=== PATIENT | male | born 1955 | race Caucasian/White ===

== ENCOUNTER 2019-10-26 16:18 | Inpatient (IN) | payer SELFPAY ==
[~2019-10-26] VITALS: Ht 185.4 cm; Wt 123.4 kg
--- NOTE | 2019-10-26 17:47 | Emergency Department Note ---
History of Present Illnes History of Present Illness Chief Complaint: General Medicine Complaints History of Present Illness This is a 63 year old male arrives to the ED for admission for acute osteomyelitis of his left fifth toe, patient is a diabetic and sees a grinder machine knife setter as an outpatient. Historian: Patient Arrival Mode: Car Onset (how long ago): day(s) Radiation: Reports non-radiation Severity: mild Onset quality: gradual Duration (how long): day(s) Timing of current episode: constant Progression: worsening Chronicity: new Context: Reports recent illness Relieving factors: none Exacerbating factors: none Past Medical/Family History Physician Review I have reviewed the patient's past medical and family history. Any updates have been documented here. Past Medical History Recent Fever: No Clinical Suspicion of Infectio: No New/Unexplained Change in Ment: No Past Medical History: Hypertension, Diabetes Other Surgery: knee surgery eye sx as child Social History Physically hurt or threatened: No Review of Systems Review of Systems Constitutional: Reports no symptoms EENTM: Reports no symptoms Cardiovascular: Reports no symptoms Respiratory: Reports no symptoms Gastrointestinal: Reports no symptoms Genitourinary: Reports no symptoms Musculoskeletal: Reports as per HPI, Reports joint pain, Reports joint swelling Integumentary: Reports no symptoms Neurological: Reports no symptoms Psychological: Reports no symptoms Endocrine: Reports no symptoms Hematological/Lymphatic: Reports no symptoms Physical Exam Related Data Allergies: Coded Allergies: No Known Allergies (Unverified , 10/26/19) Triage Vital Signs Vital Signs Date Time Temp Pulse Resp B/P (MAP) Pulse Ox O2 Delivery O2 Flow Rate FiO2 10/26/19 16:26 97.3 95 16 126/85 100 Room Air Vital signs reviewed: Yes Physical Exam CONSTITUTIONAL Constitutional: Present well-developed, Present well-nourished HENT HENT: Present normocephalic, Present atraumatic, Present oropharynx clear/moist, Present nose normal HENT L/R: Present left ext ear normal, Present right ext ear normal EYES Eyes: Reports PERRL, Reports conjunctivae normal NECK Neck: Present ROM normal PULMONARY Pulmonary: Present effort normal, Present breath sounds normal CARDIOVASCULAR Cardiovascular: Present regular rhythm, Present heart sounds normal, Present capillary refill normal, Present normal rate GASTROINTESTINAL Abdominal: Present soft, Present nontender, Present bowel sounds normal GENITOURINARY Genitourinary: Present exam deferred SKIN Skin: Present warm, Present dry MUSCULOSKELETAL Musculoskeletal: Present tenderness (fifth left toe ulcer ), Present swelling NEUROLOGICAL Neurological: Present alert, Present oriented x 3, Present no gross motor or sensory deficits PSYCHOLOGICAL Psychological: Present mood/affect normal, Present judgement normal Results Laboratory Lab results reviewed: Yes Imaging Imaging results reviewed: Yes Assessment & Plan Medical Decision Making MDM 63-year-old male arrives to the ED with acute osteomyelitis of the fifth left toe, admission orders arrived the patient. Patient admitted to Dr. Trujillo and grinder machine knife setter consulted. Assessment & Plan Final Impression: (1) Osteomyelitis Depart Disposition: ADMITTED Last Vital Signs Date Time Temp Pulse Resp B/P (MAP) Pulse Ox O2 Delivery O2 Flow Rate FiO2 10/26/19 16:26 97.3 95 16 126/85 100 Room Air MARY KAY ISRAEL DO Oct 26, 2019 17:47
[2019-10-26 17:52] LABS: BASOPHILS # (AUTO) 0.1 (0.0-0.1); BASOPHILS % 0.6 % (0.0-1.0); EOSINOPHILS # (AUTO) 0.1 (0.0-0.4); EOSINOPHILS % 0.8 % (0.0-6.0); HEMATOCRIT 38.5 % (38.2-49.6); HEMOGLOBIN 13.9 g/dL (14.0-18.0); LYMPHOCYTES # (AUTO) 1.4 (1.0-3.2); LYMPHOCYTES % 15.7 % (18.0-39.1); MEAN CORPUSCULAR HEMOGLOBIN 35.4 pg (28-32); MEAN CORPUSCULAR HGB CONC 36.1 g/dL (31-35); MONOCYTES # (AUTO) 1.2 (0.2-0.8); MONOCYTES % 13.7 % (4.4-11.3); NEUTROPHILS % 68.9 % (38.7-80.0); PLATELET COUNT 248 x10e3/uL (140-360); RED BLOOD COUNT 3.93 x10e6/uL (4.3-5.7)
[2019-10-26 18:14] LABS: ALANINE AMINOTRANSFERASE 33 IU/L (0-55); ALBUMIN 3.5 g/dL (3.5-5.0); ALBUMIN/GLOBULIN RATIO 0.7 (0.8-2.0); ALKALINE PHOSPHATASE 108 IU/L (40-150); ANION GAP 17.9 mmol/L (8-16); BLOOD UREA NITROGEN 11 mg/dL (7-26); BUN/CREATININE RATIO 11 (6-25); CALCIUM 9.6 mg/dL (8.4-10.2); CARBON DIOXIDE 23 mmol/L (22-29); CHLORIDE 96 mmol/L (98-107); CREATININE, SERUM 0.97 mg/dL (0.72-1.25); EST GLOMERULAR FILTRATION RATE > 60 ML/MIN (60-); GLUCOSE 165 mg/dL (74-118); POTASSIUM 3.9 mmol/L (3.5-5.1); SODIUM 133 mmol/L (136-145)
--- NOTE | 2019-10-26 18:48 | Diagnostic Imaging Report ---
X-ray site and # of views HISTORY: Foot pain. COMPARISON: None available. FINDINGS: Bones/joints: The bones are diffusely demineralized. No acute fracture or dislocation. There are mild degenerative changes of the midfoot and multiple interphalangeal joints. Soft tissues: Atherosclerotic vascular calcification. IMPRESSION: No acute fracture or dislocation. Mild degenerative changes of the midfoot and multiple interphalangeal joints. Signed by: Deborah Cast MD on 10/26/2019 6:44 PM
[2019-10-26 19:33] VITALS: BP 144/98
[2019-10-26] MEDS ORDERED: LISINOPRIL-HCT1 EAC2 (20:09)
[2019-10-26] MEDS ORDERED: PRAVACHOL20 MG PO (20:09)
[2019-10-26] MEDS ORDERED: METFORMIN HCL1000 MG (20:09)
[2019-10-26 20:13] VITALS: BP 144/98
[2019-10-26] MEDS ORDERED: ONDANSETRON HCL INJ 2MG/ML 2ML 2 MG/ML VIAL IV PRN ×2 (20:15)
[2019-10-26] MEDS ORDERED: ACETAMINOPHEN 325 MG TAB PO PRN (20:15)
[2019-10-26] MEDS ORDERED: DEXTROSE 50% SYRINGE 50 ML IV PRN (20:15)
[2019-10-26] MEDS ORDERED: HYDRALAZINE HCL 20 MG/ML VIAL IV PRN (20:30)
[2019-10-26] MEDS: PRAVASTATIN 20 MG TAB PO SCH (21:00)
[2019-10-26] MEDS: INSULIN LISPRO 100 UNIT/1 ML 3ML VIAL SQ SCH (21:00)
[2019-10-26] MEDS: VANCOMYCIN 1GM/NS 250 ML 250 ML IV SCH (21:00)
[2019-10-26 21:24] VITALS: BP 144/98
--- OUTSIDE RECORDS SUMMARY | 2019-10-26 21:36 | XMS REPORT | Continuity of Care Document ---
Author Author [facility] Organization [facility] Address [address] [place] [address] [place] [id number] Phone Unavailable Care Team Providers Care Copy Reader Name Role Phone Cedric ISRAEL Attphys Unavailable DARRINFredi Admphys Unavailable Problems This patient has no known problems. Allergies, Adverse Reactions, Alerts This patient has no known allergies or adverse reactions. Medications This patient has no known medications. Procedures This patient has no known procedures. Results Test Description Test Time Test Comments Results Result Comments Source FOOT LEFT COMPLETE 2019-10-26 18:42:00 [place] [address] Patient Name: SUKI FARIAS MR #: [id number] : 1955 Age/Sex: 63/M Req #: [id number] Adm Physician: Ordered by: MARY KAY ISRAEL DO Report #: [id number] Location: ER Room/Bed: Procedure: [id number] DX/FOOT LEFT COMPLETE Exam Date: 10/26/19 Exam Time: 1700 REPORT STATUS: Signed X-ray site and # of views HISTORY: Foot pain. COMPARISON: None available. FINDINGS: Bones/joints: The bones are diffusely demineralized. No acute fracture or dislocation. There are mild degenerative changes of the midfoot and multiple interphalangeal joints. Soft tissues: Atherosclerotic vascular calcification. IMPRESSION: No acute fracture or dislocation. Mild degenerative changes of the midfoot and multiple interphalangeal joints. Signed by: Dimas Stewart MD on 10/26/2019 6:44 PM Dictated By: DIMAS STEWART MD 43 Transcribed By: KINZA on 1843 COPY TO: MARY KAY ISRAEL,
--- OUTSIDE RECORDS SUMMARY | 2019-10-26 21:36 | XMS REPORT | Continuity of Care Document ---
Author Author [facility] Organization [facility] Address [address] [place] [address] [place] [id number] Phone Unavailable Care Team Providers Care Archery Instructor Name Role Phone Cedric ISRAEL Attphys Unavailable DARRINFredi Admphys Unavailable Problems This patient has no known problems. Allergies, Adverse Reactions, Alerts This patient has no known allergies or adverse reactions. Medications This patient has no known medications. Procedures This patient has no known procedures. Results Test Description Test Time Test Comments Results Result Comments Source FOOT LEFT COMPLETE 2019-10-26 18:42:00 [place] [address] Patient Name: SUKI FARIAS MR #: [id number] : 1955 Age/Sex: 63/M Req #: [id number] Adm Physician: Ordered by: MARY KAY ISRAEL DO Report #: [id number] Location: ER Room/Bed: Procedure: [id number] DX/FOOT LEFT COMPLETE Exam Date: 10/26/19 Exam [...]
[2019-10-26] MEDS ORDERED: SODIUM CHLORIDE 0.9% 250ML 250 ML ONE (21:40)
[2019-10-26] MEDS: HYDROCODONE/APAP 5MG-325MG TAB PO PRN (22:04)
[2019-10-26] MEDS: CEFEPIME 1GM/NS 0.9% 50 ML 50 ML IV SCH (22:05)
[2019-10-27] VITALS (8 sets, daily range): BP systolic 120–148; BP diastolic 72–91
[2019-10-27] MEDS: HYDROCODONE/APAP 5MG-325MG TAB PO PRN ×2 (03:50→14:51)
[2019-10-27 05:49] LABS: BASOPHILS % 0.7 % (0.0-1.0); EOSINOPHILS # (AUTO) 0.1 (0.0-0.4); EOSINOPHILS % 2.3 % (0.0-6.0); HEMATOCRIT 35.7 % (38.2-49.6); LYMPHOCYTES # (AUTO) 1.4 (1.0-3.2); LYMPHOCYTES % 22.5 % (18.0-39.1); MEAN CORPUSCULAR HEMOGLOBIN 36.5 pg (28-32); MEAN CORPUSCULAR HGB CONC 36.4 g/dL (31-35); MEAN CORPUSCULAR VOLUME 100.3 fL (81-99); MONOCYTES # (AUTO) 0.9 (0.2-0.8); MONOCYTES % 14.2 % (4.4-11.3); NEUTROPHILS # (AUTO) 3.7 (2.1-6.9); NEUTROPHILS % 60.1 % (38.7-80.0); PLATELET COUNT 209 x10e3/uL (140-360); RED BLOOD COUNT 3.56 x10e6/uL (4.3-5.7); RED CELL DISTRIBUTION WIDTH 10.8 % (11.7-14.4)
[2019-10-27 06:40] LABS: ALANINE AMINOTRANSFERASE 25 IU/L (0-55); ALBUMIN 2.9 g/dL (3.5-5.0); ALBUMIN/GLOBULIN RATIO 0.7 (0.8-2.0); ALKALINE PHOSPHATASE 94 IU/L (40-150); ANION GAP 13.4 mmol/L (8-16); BLOOD UREA NITROGEN 9 mg/dL (7-26); BUN/CREATININE RATIO 12 (6-25); CALCIUM 8.8 mg/dL (8.4-10.2); CARBON DIOXIDE 26 mmol/L (22-29); CHLORIDE 98 mmol/L (98-107); CREATININE, SERUM 0.74 mg/dL (0.72-1.25); EST GLOMERULAR FILTRATION RATE > 60 ML/MIN (60-); GLUCOSE 119 mg/dL (74-118); POTASSIUM 3.4 mmol/L (3.5-5.1); SODIUM 134 mmol/L (136-145)
--- NOTE | 2019-10-27 07:00 | NUR ---
RECEIVED BEDSIDE SHIFT CHANGE REPORT FROM PM NURSE. PT AWAKE, ALERT, AMBULATING WITHOUT DIFFICULTY, NO S/S OF DISTRESS.
[2019-10-27] MEDS: INSULIN LISPRO 100 UNIT/1 ML 3ML VIAL SQ SCH ×4 (07:30→21:00)
--- NOTE | 2019-10-27 08:18 | Consultation ---
DATE OF CONSULTATION: 10/27/2019 REASON FOR CONSULTATION: Left foot wound. HISTORY OF PRESENTING ILLNESS: This is a 63-year-old male with past medical history of type 2 diabetes, peripheral neuropathy, and hypertension, who was admitted through the emergency room yesterday for worsening infection to his left foot. The patient was seen by me in the outpatient office yesterday where he described a wound to his left 5th digit that had been present for approximately one month and started out as a blister. He has noticed some drainage and increased swelling, redness and pain to the left foot. He relates that he is a well controlled diabetic, however, does not check his blood sugars regularly. The patient relates that he was not doing any type of wound care to the left foot and had not seen a physician prior to yesterday for his left foot wound. Patient currently denies nausea, vomiting, fever, chills, chest pain, or shortness of breath. No new complaints since yesterday. Patient relates to improvement in pain, swelling and redness to his left foot once being started on IV antibiotics. No other pedal complaints. PAST MEDICAL HISTORY: Type 2 diabetes, peripheral neuropathy, hypertension. MEDICATIONS: Per the chart. ALLERGIES: NO KNOWN DRUG ALLERGIES. PAST SURGICAL HISTORY: Knee surgery, eye surgery. SOCIAL HISTORY: The patient denies smoking, drinking, or any illicit drug usage. PHYSICAL EXAMINATION: GENERAL: Alert and oriented x3, in no apparent distress. VITAL SIGNS: Today temperature 97.8, heart rate 81, respiratory rate 20, blood pressure 137/79, pulse ox 100% on room air. PROBLEM FOCUSED LOWER EXTREMITY PHYSICAL EXAM: Vascular; dorsalis pedis and pulses nonpalpable due to +2 pitting edema. Posterior tibial pulses nonpalpable due to +2 pitting edema. Capillary refill time is delayed to all digit specifically the left 5th digit which does have a cyanotic discoloration. NEUROLOGICAL: Sensation is absent to light touch bilateral. MUSCULOSKELETAL: Pain on palpation to the left foot. DERMATOLOGICAL: A deep ulceration is noted to the dorsal lateral aspect of the patient's left 5th digit, which probe to the level of the deep tissue and bone. Improvement reduction in periwound erythema, edema and warmth since yesterday. A superficial blister was noted to the medial aspect of the patient's left 5th digit. Dry and leathery atrophic skin is noted to the anterior aspect of bilateral legs consistent with venous stasis changes. LABORATORY DATA: White blood cell count is 6.1, hemoglobin 13.0, hematocrit 35.7, and platelet count 209. Sodium 134, potassium 3.4, chloride 98, CO2 of 26, BUN 9, creatinine 0.74, glucose 119. Hemoglobin A1c is 5.8. CRP and sedimentation rate are pending. ASSESSMENT: 1. Left foot deep ulceration with probable osteomyelitis. 2. Type 2 diabetes and peripheral neuropathy. 3. Peripheral vascular disease. 4. Venous stasis. 5. Hypertension. PLAN: The patient was seen and evaluated. Discussed condition and treatment options with the patient in detail. At this time, I would recommend an MRI without contrast to determine if osteomyelitis and extent of osteomyelitis if present. Wound cultures were ordered to the left 5th digit to determine antibiotic medications. Continue current antibiotic therapy with IV vancomycin and cefepime. Arterial Dopplers have been ordered to determine extent of peripheral vascular disease. Based on results of MRI, we will determine further course of action. If osteomyelitis is present, we will consider 5th digit versus partial 5th ray amputation. If osteomyelitis is not present, we will recommend another 24 to 48 hours of IV antibiotics followed by local wound care at home. The Podiatry Service will continue to monitor as inpatient. STEPHAN Shaver/THANG /[id number]
[2019-10-27] MEDS: HYDROCHLOROTHIAZIDE 25 MG TAB PO SCH (09:06)
[2019-10-27] MEDS: LISINOPRIL 10 MG TAB PO SCH (09:06)
[2019-10-27] MEDS: FAMOTIDINE 20 MG TAB PO SCH ×2 (09:06→17:23)
[2019-10-27] MEDS ORDERED: PNEUMOCOCCAL VACCINE POLYVALENT 23 MCG/0.5 ML VIAL IM SCH (10:00)
[2019-10-27] MEDS: VANCOMYCIN 1GM/NS 250 ML 250 ML IV SCH ×2 (10:05→22:00)
[2019-10-27] MEDS ORDERED: POTASSIUM CHLORIDE 20 MEQ TAB CR PO ONE (11:00)
--- NOTE | 2019-10-27 11:07 | Diagnostic Imaging Report ---
TECHNIQUE: Magnetic resonance imaging of the LEFT foot was performed WITHOUT injected contrast. HISTORY: Left foot pain clinically concerning for osteomyelitis. COMPARISON: Foot radiographs of 10/26/2019. DISCUSSION: BONES: [There is edema involving the fifth proximal, middle and distal phalanges. Remainder of the bones have normal marrow signal. No evidence of acute fracture. JOINTS: [Normal alignment of the imaged foot joints.] SYNOVIUM: [No synovial thickening]. [No joint effusion.] TENDONS: Partially imaged extensor and flexor tendons are intact. LIGAMENTS: Inter-metatarsal ligaments are normal MUSCULATURE/SOFT TISSUE: [There is a skin defect of the fifth toe compatible with ulceration and superimposed soft tissue edema. Additionally, there is mild dorsal soft tissue edema of the mid and forefoot. IMPRESSION: 1. Small toe skin ulcer with diffuse soft tissue edema and superimposed osteomyelitis involving the fifth proximal, middle and distal phalanges. 2. Dorsal foot soft tissue edema which can be seen with cellulitis. Signed by: Deborah Cast MD on 10/27/2019 11:04 AM
[2019-10-27] MEDS ORDERED: INFLUENZA VIRUS VAC SPLIT INJ 0.5 ML SYR IM SCH (14:00)
[2019-10-27] MEDS: CEFEPIME 1GM/NS 0.9% 50 ML 50 ML IV SCH (17:24)
--- NOTE | 2019-10-27 19:05 | NUR ---
BEDSIDE SHIFT CHANGE REPORT GIVEN TO ONCOMING NURSE. PT IN STABLE CONDITION.
--- NOTE | 2019-10-27 19:10 | NUR ---
Completed bedside shift report with morning nurse. Pt alert and oriented, lying in bed HOB 45. Denies pain at this time. Call light within reach.
[2019-10-27] MEDS: PRAVASTATIN 20 MG TAB PO SCH (21:00)
[2019-10-28] VITALS (9 sets, daily range): BP systolic 124–141; BP diastolic 74–88
[2019-10-28 06:00] LABS: BASOPHILS # (AUTO) 0.1 (0.0-0.1); BASOPHILS % 0.8 % (0.0-1.0); EOSINOPHILS # (AUTO) 0.2 (0.0-0.4); EOSINOPHILS % 3.1 % (0.0-6.0); HEMATOCRIT 35.4 % (38.2-49.6); HEMOGLOBIN 13.4 g/dL (14.0-18.0); LYMPHOCYTES # (AUTO) 1.8 (1.0-3.2); LYMPHOCYTES % 27.5 % (18.0-39.1); MEAN CORPUSCULAR HGB CONC 37.9 g/dL (31-35); MEAN CORPUSCULAR VOLUME 102.9 fL (81-99); MONOCYTES # (AUTO) 0.9 (0.2-0.8); MONOCYTES % 14.6 % (4.4-11.3); NEUTROPHILS # (AUTO) 3.5 (2.1-6.9); NEUTROPHILS % 53.8 % (38.7-80.0); PLATELET COUNT 178 x10e3/uL (140-360); RED BLOOD COUNT 3.44 x10e6/uL (4.3-5.7); RED CELL DISTRIBUTION WIDTH 11.2 % (11.7-14.4)
[2019-10-28 06:30] LABS: ALANINE AMINOTRANSFERASE 29 IU/L (0-55); ALBUMIN/GLOBULIN RATIO 0.7 (0.8-2.0); ALKALINE PHOSPHATASE 98 IU/L (40-150); ANION GAP 13.8 mmol/L (8-16); BLOOD UREA NITROGEN 8 mg/dL (7-26); BUN/CREATININE RATIO 11 (6-25); CALCIUM 9.2 mg/dL (8.4-10.2); CARBON DIOXIDE 26 mmol/L (22-29); CHLORIDE 98 mmol/L (98-107); CREATININE, SERUM 0.76 mg/dL (0.72-1.25); EST GLOMERULAR FILTRATION RATE > 60 ML/MIN (60-); GLUCOSE 116 mg/dL (74-118); POTASSIUM 3.8 mmol/L (3.5-5.1); SODIUM 134 mmol/L (136-145)
--- NOTE | 2019-10-28 07:00 | NUR ---
BEDSIDE SHIFT CHANGE REPORT RECEIVED FROM PM NURSE. PT IN STABLE CONDITION.
[2019-10-28] MEDS: INSULIN LISPRO 100 UNIT/1 ML 3ML VIAL SQ SCH ×4 (07:30→20:58)
[2019-10-28] MEDS: FAMOTIDINE 20 MG TAB PO SCH ×2 (09:36→17:48)
[2019-10-28] MEDS: HYDROCHLOROTHIAZIDE 25 MG TAB PO SCH (09:37)
[2019-10-28] MEDS: LISINOPRIL 10 MG TAB PO SCH (09:38)
[2019-10-28] MEDS: VANCOMYCIN 1GM/NS 250 ML 250 ML IV SCH ×2 (09:39→20:57)
--- NOTE | 2019-10-28 11:32 | Progress Note ---
DATE: 10/28/2019 SUBJECTIVE: This is a 63-year-old male with past medical history of type 2 diabetes, peripheral neuropathy, hypertension, who was admitted two days ago for worsening infection to his left foot. He was seen at bedside this morning. He relates to improvement in pain and swelling to the left lower extremity. Currently, he denies nausea, vomiting, fever, chills, chest pain, or shortness of breath. No new pedal complaints at this time. PHYSICAL EXAMINATION: GENERAL: Alert and oriented x3, in no apparent distress. VITAL SIGNS: Today, temperature is 98.4, heart rate 71, respiratory rate 20, blood pressure 124/77, and pulse ox is 99% on room air. PROBLEM FOCUSED LOWER EXTREMITY PHYSICAL EXAM: Vascular: Dorsalis pedis and posterior tibial pulses are nonpalpable to the left lower extremity. Capillary refill time is delayed to all digits, especially the left 5th digit. Reduction in erythema, edema and warmth since previous visit. NEUROLOGICAL: Sensation is diminished to light touch bilateral. MUSCULOSKELETAL: Mild pain on palpation is noted to the left 5th digit, however, it is improved. DERMATOLOGIC: Deep probing ulceration to the lateral aspect of the patient's left 5th digit which does probe down to the level of bone. Greater than 2 cm of periwound erythema, edema and one of the superficial blisters noted to the medial aspect of the right 5th digit. LABORATORY DATA: White blood cell count 6.4, hemoglobin 13.4, hematocrit 35.4, and platelet count 178. Sodium 134, potassium 3.8, chloride 98, CO2 26, BUN 8, creatinine 0.76, and glucose 116. CRP is 64. Coronavirus not detected. IMAGING: MRI of the left foot reveals osteomyelitis involving the 5th proximal middle and distal phalanx, dorsal soft tissue edema consistent with osteomyelitis. Arterial Dopplers are monophasic distal to the SFA. There is evidence of significant arterial stenosis. ASSESSMENT: 1. Left foot ulceration with osteomyelitis of the 5th digit. 2. Type 2 diabetes and peripheral neuropathy. 3. Peripheral vascular disease. 4. Venous stasis. 5. Hypertension. PLAN: The patient was seen and evaluated. Discussed condition and treatment options with the patient in detail. Discussed with the patient at this time the MRI revealed osteomyelitis to the proximal, middle and distal phalanges of the left 5th digit. His arterial Doppler showed evidence of significant stenosis. Discussed with the patient that he will likely need an amputation of the left 5th digit. However, prior to scheduling the amputation, we will recommend Cardiology consultation for evaluation of peripheral vascular disease and if intervention, can optimize blood flow prior to surgical intervention. This case was discussed with the primary team and a Cardiology consult will be placed. We will schedule amputation after quality control associate's recommendations. STEPHAN Shaver/THANG /[id number]
[2019-10-28] MEDS: CEFEPIME 1GM/NS 0.9% 50 ML 50 ML IV SCH (17:48)
--- NOTE | 2019-10-28 19:03 | NUR ---
Shift report completed with morning nurse. Pt alert and oriented, lying in bed HOB 45 degrees. Denies pain at this time. Call light within reach.
[2019-10-28] MEDS: PRAVASTATIN 20 MG TAB PO SCH (20:57)
[2019-10-29] VITALS (7 sets, daily range): BP systolic 127–160; BP diastolic 58–87
--- NOTE | 2019-10-29 00:25 | Consultation ---
DATE OF CONSULTATION: 10/28/2019 Cardiology Consult Note REASON FOR CONSULT: Nonhealing left lower extremity wound and peripheral arterial disease. CHIEF COMPLAINT: Left lower extremity ulcer. HISTORY OF PRESENT ILLNESS: A 63-year-old man with history of diabetes, hypertension, hyperlipidemia, presents with nonhealing diabetic foot ulcer of the left lower extremity, found to have PAD of left lower extremity by Doppler. We are consulted for management. REVIEW OF SYSTEMS: As per HPI, otherwise negative. PAST MEDICAL HISTORY: As per HPI. SOCIAL HISTORY: Does not smoke, drink, or abuse drugs. FAMILY HISTORY: Noncontributory. OUTPATIENT MEDICATIONS: Reviewed. ALLERGIES: NO KNOWN DRUG ALLERGIES. OBJECTIVE: VITAL SIGNS: Temperature afebrile, pulse 67, respiratory rate 18, blood pressure 134/88, saturating 100% on room air. GENERAL: Elderly man, in no acute distress. CARDIOVASCULAR: Regular rate and rhythm. No murmurs, rubs, or gallops. LUNGS: Clear to auscultation bilaterally. ABDOMEN: Soft, nontender, nondistended. NEURO AND PSYCH: Alert and oriented to person, place, and time. Normal affect. EXTREMITIES: Left lower extremity is wrapped. There seems to be a wound on the lateral side of left lower extremity. Dressing was not taken off for further examination at this time. INPATIENT MEDICATIONS: Reviewed. LABORATORY DATA: Reviewed, notable for hemoglobin of 13.4, GFR greater than 60. IMAGING DATA: Reviewed. MRI shows small toe skin ulcer with superimposed osteomyelitis involving the 5th proximal middle and distal phalanges and soft tissue edema. Arterial Dopplers reviewed shows focal lesion of the left popliteal artery as well as runoff disease of left lower extremity in . ASSESSMENT/PLAN: 1. Diabetic foot ulcer. 2. Peripheral arterial disease. PLAN: Plan for peripheral angiography and intervention tomorrow. Please keep the patient n.p.o. after midnight. Further recommendations based on findings of the angiogram. MD ERIC Swain/THANG /[id number]
[2019-10-29 06:26] LABS: ALANINE AMINOTRANSFERASE 35 IU/L (0-55); ALBUMIN 3.1 g/dL (3.5-5.0); ALBUMIN/GLOBULIN RATIO 0.7 (0.8-2.0); ALKALINE PHOSPHATASE 111 IU/L (40-150); ANION GAP 14.7 mmol/L (8-16); BLOOD UREA NITROGEN 7 mg/dL (7-26); BUN/CREATININE RATIO 9 (6-25); CALCIUM 9.3 mg/dL (8.4-10.2); CARBON DIOXIDE 26 mmol/L (22-29); CHLORIDE 99 mmol/L (98-107); CREATININE, SERUM 0.76 mg/dL (0.72-1.25); EST GLOMERULAR FILTRATION RATE > 60 ML/MIN (60-); GLUCOSE 108 mg/dL (74-118); POTASSIUM 3.7 mmol/L (3.5-5.1); SODIUM 136 mmol/L (136-145)
--- NOTE | 2019-10-29 07:20 | NUR ---
PATIENT IS ALERT, AWAKE, AND IN STABLE CONDITION WITH NO S/S OF RESPIRATORY DISTRESS. NO PAIN VOICED. ULCERATION NOTED TO LEFT FIFTH DIGIT- DRESSING REAPPLIED ORDERED. PATIENT IS NPO FOR PROCEDURE TODAY. CALL LIGHT IS WITHIN REACH OF PATIENT, PATIENT INSTRUCTED TO CALL FOR ASSISTANCE NEEDED.
[2019-10-29] MEDS: FAMOTIDINE 20 MG TAB PO SCH ×2 (07:30→15:55)
[2019-10-29] MEDS: INSULIN LISPRO 100 UNIT/1 ML 3ML VIAL SQ SCH ×4 (07:30→21:10)
[2019-10-29 07:39] LABS: BASOPHILS # (AUTO) 0.1 (0.0-0.1); BASOPHILS % 0.9 % (0.0-1.0); EOSINOPHILS # (AUTO) 0.2 (0.0-0.4); EOSINOPHILS % 3.7 % (0.0-6.0); HEMATOCRIT 38.9 % (38.2-49.6); HEMOGLOBIN 13.9 g/dL (14.0-18.0); LYMPHOCYTES # (AUTO) 1.7 (1.0-3.2); LYMPHOCYTES % 28.8 % (18.0-39.1); MEAN CORPUSCULAR HEMOGLOBIN 35.1 pg (28-32); MEAN CORPUSCULAR HGB CONC 35.7 g/dL (31-35); MEAN CORPUSCULAR VOLUME 98.2 fL (81-99); MONOCYTES # (AUTO) 0.8 (0.2-0.8); MONOCYTES % 14.3 % (4.4-11.3); PLATELET COUNT 271 x10e3/uL (140-360); RED BLOOD COUNT 3.96 x10e6/uL (4.3-5.7); RED CELL DISTRIBUTION WIDTH 10.7 % (11.7-14.4)
[2019-10-29] MEDS: LISINOPRIL 10 MG TAB PO SCH (08:18)
[2019-10-29] MEDS: VANCOMYCIN 1GM/NS 250 ML 250 ML IV SCH (08:22)
--- NOTE | 2019-10-29 09:07 | NUR ---
GAVE PACKET OF INFORMATION WITH COMMUNITY [employer] FOR ASSISTANCE WITH LOW TO NO INCOME TO PATIENT. RESOURCES THAT PATIENT MAY BE ABLE TO FOLLOW UP UPON DISCHARGE. PT EDUCATED ON EACH RESOURCE AND UNDERSTANDING HOW TO FOLLOW UP TO SEE IF QUALIFIED FOR EACH RESOURCE.
--- NOTE | 2019-10-29 10:02 | Progress Note ---
DATE: 10/29/2019 SUBJECTIVE: A 63-year-old male with past medical history of type 2 diabetes, peripheral neuropathy, peripheral vascular disease and hypertension, who was admitted three days ago for worsening infection to his left foot. He was seen at bedside this morning and relates improvement in pain, swelling to the left lower extremity. Currently, denies nausea, vomiting, fever, chills, chest pain, shortness of breath. No new pedal complaints at this time. No acute issues overnight. PHYSICAL EXAMINATION: GENERAL: Alert and oriented x3, in no apparent distress. VITAL SIGNS: Temperature 97.8, heart rate 75, respiratory rate 19, blood pressure 140/85, and pulse ox is 98% on room air. EXTREMITIES: Problem focused on lower extremity physical exam, vascular, dorsalis pedis, and posterior tibial pulses are not palpable. Capillary refill time is delayed to all digits, specific to the left 5th digit. Reduction in erythema, edema, and warmth since yesterday. NEUROLOGICAL: Sensation is diminished to light touch bilateral. MUSCULOSKELETAL: Improving pain on palpation to the left 5th digit. DERMATOLOGICAL: Deep probing ulceration to the lateral aspect of the patient's left 5th digit with probes down to the level of bone. Improvement in periwound erythema, edema, and warmth. Superficial blister is noted to the medial aspect of the patient's left 5th digit. LABS: Today, white blood cell count 5.7, hemoglobin 13.9, hematocrit 38.2, and platelet count 271. Sodium 136, potassium 3.7, chloride 99, CO2 26, BUN 7, creatinine 0.76, and glucose is 108. Hemoglobin A1c is 5.8. C-reactive protein is 64. ASSESSMENT: 1. Left foot ulceration with osteomyelitis of the 5th digit. 2. Type 2 diabetes, peripheral neuropathy. 3. Peripheral vascular disease. 4. Venous stasis. 5. Hypertension. PLAN: The patient was seen and evaluated. Discussed condition and treatment options with the patient in detail. Discussed with the patient at this time, MRI reveals osteomyelitis of the left 5th digit. An arterial Doppler showed focal stenosis to the popliteal artery with runoff to the left lower extremity. The patient was seen by Dr. Boudreaux and is undergoing angiogram with possible intervention today. Based on results of this, we will plan for left partial 5th ray amputation tomorrow, 10/30/2019. We will discuss with the primary team as well as the Cardiology Team. Podiatry Service will continue to monitor as an inpatient. STEPHAN Sahver/CORINNEL /[id number]
--- NOTE | 2019-10-29 10:57 | NUR ---
PATIENT OFF THE UNIT PER BED TO ART OBJECTS SALESPERSON. PATIENT IS IN STABLE CONDITION WITH NO S/S OF RESPIRATORY DISTRESS. DRESSING APPLIED TO LEFT FOOT ORDERED.
[2019-10-29] MEDS ORDERED: MIDAZOLAM HCL 2 MG/2 ML VIAL ONE (11:08)
[2019-10-29] MEDS ORDERED: IOPAMIDOL 300MG/ML 100 ML INFUS..BTL IV ONE (11:09)
[2019-10-29] MEDS ORDERED: LIDOCAINE HCL 2% LOCAL 20 ML VIAL ONE (11:09)
[2019-10-29] MEDS ORDERED: HEPARIN SOD/SOD CHLORIDE 2,000 ML ONE (11:09)
[2019-10-29] MEDS ORDERED: SODIUM CHLORIDE 0.9% 1000ML 1,000 ML ONE (11:09)
[2019-10-29] MEDS ORDERED: FENTANYL CITRATE/PF 100MCG/2 ML INJ ONE (11:09)
--- NOTE | 2019-10-29 12:28 | NUR ---
PATIENT BACK ON THE UNIT FROM PRECISION AGRICULTURE TECHNICIAN PER BED. PATIENT IS IN STABLE CONDITION WITH NO S/S OF RESPIRATORY DISTRESS. NO PAIN VOICED. RIGHT GROIN DRESSING IS C/D/I; BILATERAL PULSES NOTED. PATIENT IS AWARE HE NEEDS TO REMAIN FLAT IN BED FOR TWO HOURS (UNTIL 1415). CALL LIGHT IS WITHIN REACH OF PATIENT, PATIENT INSTRUCTED TO CALL FOR ASSISTANCE NEEDED.
[2019-10-29] MEDS: HYDROCHLOROTHIAZIDE 25 MG TAB PO SCH (12:50)
[2019-10-29] MEDS: CEFEPIME 1GM/NS 0.9% 50 ML 50 ML IV SCH (17:03)
--- NOTE | 2019-10-29 19:25 | NUR ---
PATIENT IS IN STABLE CONDITION WITH NO S/S OF RESPIRATORY DISTRESS- NO PAIN VOICED. PATIENT IS AWARE HE WILL BE NPO AFTER MIDNIGHT FOR PROCEDURE TOMORROW. CALL LIGHT IS WITHIN REACH OF PATIENT, PATIENT INSTRUCTED TO CALL FOR ASSISTANCE NEEDED. BEDSIDE SHIFT REPORT GIVEN TO ONCOMING NURSE.
[2019-10-29] MEDS: PRAVASTATIN 20 MG TAB PO SCH (21:10)
--- NOTE | 2019-10-29 21:10 | NUR ---
PATIENT IS RESTING IN BED IN STABLE CONDITION, NO SIGNS OF RESPIRATORY DISTRESS NOTED. DRESSING TO LEFT FOOT IS CLEAN, DRY, AND INTACT, PATIENT VOICES NO PAIN AT THIS TIME. PATIENT VOICES REQUEST FOR BATH AND IS PROMPTLY GETTING PREPARED. BED IS IN LOWEST POSITION, BOTH SIDE RAILS ARE UP, CALL LIGHT IS WITHIN EASY REACH, WILL CONTINUE TO MONITOR.
--- NOTE | 2019-10-29 22:05 | NUR ---
AFTER PATIENT FINISHED SHOWER, WOUND ON LEFT TOE WAS REDRESSED. DRESSING IS CLEAN, DRY, AND INTACT, NO DRAINAGE NOTED. PATIENT IS AWARE OF NPO AFTER MIDNIGHT FOR PROCEDURE TOMORROW.
[2019-10-30] VITALS (8 sets, daily range): BP systolic 120–133; BP diastolic 67–80
[2019-10-30 05:20] LABS: BASOPHILS # (AUTO) 0.1 (0.0-0.1); BASOPHILS % 1.2 % (0.0-1.0); EOSINOPHILS # (AUTO) 0.2 (0.0-0.4); HEMATOCRIT 39.1 % (38.2-49.6); HEMOGLOBIN 14.1 g/dL (14.0-18.0); LYMPHOCYTES # (AUTO) 1.5 (1.0-3.2); MEAN CORPUSCULAR HEMOGLOBIN 34.9 pg (28-32); MEAN CORPUSCULAR HGB CONC 36.1 g/dL (31-35); MEAN CORPUSCULAR VOLUME 96.8 fL (81-99); MONOCYTES # (AUTO) 0.8 (0.2-0.8); MONOCYTES % 13.8 % (4.4-11.3); NEUTROPHILS # (AUTO) 3.1 (2.1-6.9); NEUTROPHILS % 54.8 % (38.7-80.0); PLATELET COUNT 257 x10e3/uL (140-360); RED BLOOD COUNT 4.04 x10e6/uL (4.3-5.7); RED CELL DISTRIBUTION WIDTH 10.6 % (11.7-14.4)
[2019-10-30 06:04] LABS: ALANINE AMINOTRANSFERASE 44 IU/L (0-55); ALBUMIN 3.2 g/dL (3.5-5.0); ALBUMIN/GLOBULIN RATIO 0.7 (0.8-2.0); ALKALINE PHOSPHATASE 136 IU/L (40-150); ANION GAP 13.6 mmol/L (8-16); BLOOD UREA NITROGEN 8 mg/dL (7-26); BUN/CREATININE RATIO 11 (6-25); CALCIUM 9.8 mg/dL (8.4-10.2); CARBON DIOXIDE 24 mmol/L (22-29); CHLORIDE 100 mmol/L (98-107); CREATININE, SERUM 0.72 mg/dL (0.72-1.25); EST GLOMERULAR FILTRATION RATE > 60 ML/MIN (60-); GLUCOSE 116 mg/dL (74-118); POTASSIUM 3.6 mmol/L (3.5-5.1); SODIUM 134 mmol/L (136-145)
[2019-10-30] MEDS: FAMOTIDINE 20 MG TAB PO SCH ×2 (07:11→15:54)
--- NOTE | 2019-10-30 07:15 | NUR ---
PATIENT IS AWAKE, ALERT, AND IN STABLE CONDITION WITH NO S/S OF RESPIRATORY DISTRESS. NO PAIN VOICED. DRESSING APPLIED TO LEFT FOOT- DRESSING IS C/D/I. PATIENT IS NPO FOR PROCEDURE TODAY. CALL LIGHT IS WITHIN REACH OF PATIENT, PATIENT INSTRUCTED TO CALL FOR ASSISTANCE NEEDED.
[2019-10-30] MEDS: INSULIN LISPRO 100 UNIT/1 ML 3ML VIAL SQ SCH ×4 (07:30→21:15)
--- NOTE | 2019-10-30 12:27 | NUR ---
PATIENT OFF THE UNIT TO OR PER STRETCHER FOR PROCEDURE.PATIENT IN STABLE CONDITION WITH NO S/S OF RESPIRATORY DISTRESS.
[2019-10-30] MEDS ORDERED: BUPIVACAINE HCL 0.5% INJ 30 ML VIAL INJ ONE (12:52)
--- NOTE | 2019-10-30 13:38 | Progress Note ---
DATE: 10/30/2019 Cardiology Progress Note SUBJECTIVE: The patient denies chest pain or shortness of breath. OBJECTIVE: VITAL SIGNS: Temperature 97.7 degrees, pulse 82, respiratory rate 17, blood pressure 127/71, and oxygen saturation 98% on room air. GENERAL: Awake, alert, in no acute distress. LUNGS: Clear to auscultation bilaterally. No wheezes or crackles. CARDIOVASCULAR: Normal rate, regular rhythm. No murmur. Normal S1, S2. ABDOMEN: Soft, nontender. EXTREMITIES: Skin changes consistent with chronic venous stasis, dressing present on the left lower extremity. CARDIAC MEDICATIONS: Hydrochlorothiazide 12.5 mg p.o. daily and aspirin 10 mg p.o. daily. LABORATORY DATA: WBC 5.67, hemoglobin 14.1, hematocrit 39.1, and platelets 257. Sodium 134, potassium 3.6, chloride 100, CO2 of 24, BUN 8, and creatinine 0.72. IMPRESSION: 1. Diabetic foot ulcer with osteomyelitis. 2. Hypertension. 3. Diabetes mellitus. RECOMMENDATIONS: The patient underwent peripheral angiogram yesterday without obstructive peripheral arterial disease. Antibiotics per primary. Wound care per Podiatry. Echocardiogram was reviewed with normal LV systolic function. The blood pressure is adequately controlled. No further cardiac evaluation is indicated at this time. Thank you for this consult. We will continue to follow. Julianne Rodrigues MD ABS/MODL /[id number]
--- NOTE | 2019-10-30 13:57 | NUR ---
PATIENT BACK ON THE UNIT- IN STABLE CONDITION WITH NO S/S OF RESPIRATORY DISTRESS. DRESSING C/D/I TO LEFT FOOT. CALLED AND SPOKE WITH DR. CLIFFORD REGARDING PT EVAL ORDER- ORDER RECEIVED.
[2019-10-30] MEDS ORDERED: SEVOFLURANE INHAL SOLN 250 ML PEN BTL ONE (14:39)
[2019-10-30] MEDS ORDERED: LIDOCAINE HCL 2% LOCAL INJ 5 ML SDV VIAL INJ ONE (14:39)
[2019-10-30] MEDS ORDERED: PROPOFOL IV EMULSION 10 MG/ML 20 ML VIAL ONE (14:39)
--- NOTE | 2019-10-30 15:33 | Operative Report ---
DATE OF PROCEDURE: 10/30/2019 SURGEON: Zaki Car DPM PREOPERATIVE DIAGNOSIS: Left foot osteomyelitis. POSTOPERATIVE DIAGNOSIS: Left foot osteomyelitis. PLANNED PROCEDURE: Left partial 5th ray amputation. ANESTHESIA: General with a postoperative block consisting of 10 mL of 0.5% Marcaine plain. HEMOSTASIS: Esmarch tourniquet applied for approximately 15 minutes. ESTIMATED BLOOD LOSS: Less than 10 mL. PATHOLOGY: Anaerobic and aerobic cultures as well as 5th digit sent for gross specimen. MATERIALS: 3-0 nylon. PROCEDURE NOTE: The patient was seen in the preoperative waiting room where the correct procedure and site were identified. The patient was brought to the operating room and placed on the operating table in supine position. General anesthesia was initiated. At this time, an Esmarch tourniquet was applied to the left ankle for approximately 15 minutes. Attention was directed to the distal aspect of the patient's left foot, where a deep probing ulceration was noted to the distal lateral aspect of the patient's left 5th digit extending down to the level of bone. Deep ulceration was noted to the medial aspect of the patient's left 5th digit. There was active purulent drainage. At this time, the decision was made to proceed with a partial 5th ray amputation. Utilizing a bone clamp, the distal aspect of the digit was clamped utilizing 2 converging semi-elliptical incisions at the level of 1st metatarsophalangeal joint, the case was started. The incision was carried down to the level of the metatarsophalangeal joint. The left 5th digit was disarticulated and passed off to the back table. It should be noted that upon incision, a moderate amount of purulent drainage was noted. This was cultured and passed off to the back table and the 5th digit was sent for gross specimen. The dissection was carried down to the level of 5th metatarsophalangeal joint to allow for good visualization of the 5th metatarsal head. At this point, utilizing a sagittal saw, the metatarsal head was resected and passed off to the back table angled lateral to avoid a prominent edge. The wound was then copiously irrigated with sterile saline mixed with bacitracin. The wound was debrided of all necrotic and devitalized tissue and all tendons were identified, pulled distally, cut and allowed to retract proximally into the foot. The wound edges were prepped for closure by removing all dog-ears and debulking fat. Next, the wound was reapproximated utilizing simple interrupted sutures with 3-0 nylon. The incision site was then dressed with Adaptic, Betadine-soaked, 4x4s, Kerlix, Nick wrap, and a postop shoe. The patient tolerated the procedure and anesthesia well. The patient was transferred to the postop recovery room with vital signs stable and vascular status intact. The patient was monitored for a short period of time before being readmitted to the floor for postop monitoring, pain control, and IV antibiotics. The Podiatry Service will continue to monitor as an inpatient. STEPHAN Shaver/THANG /[id number]
[2019-10-30] MEDS: HYDROCHLOROTHIAZIDE 25 MG TAB PO SCH (15:54)
[2019-10-30] MEDS: LISINOPRIL 10 MG TAB PO SCH (15:54)
[2019-10-30] MEDS: CEFEPIME 1GM/NS 0.9% 50 ML 50 ML IV SCH (17:02)
[2019-10-30] MEDS: MAGNESIUM OXIDE 400 MG TAB PO SCH (19:02)
--- NOTE | 2019-10-30 19:20 | NUR ---
PATIENT IS IN STABLE CONDITION WITH NO S/S OF RESPIRATORY DISTRESS- NO PAIN VOICED. DRESSING TO LEFT FOOT IS C/D/I. WALKER AVAILABLE FOR PATIENT NEAR BEDSIDE. POST OP SHOE AVAILABLE FOR PATIENT WELL. CALL LIGHT IS WITHIN REACH, PATIENT INSTRUCTED TO CALL FOR ASSISTANCE NEEDED. BEDSIDE SHIFT REPORT GIVEN TO ONCOMING NURSE.
--- NOTE | 2019-10-30 19:25 | Progress Note ---
DATE: PRIMARY CARE PHYSICIAN: Dr. Eric Caceres CONSULTING PHYSICIANS: 1. Dr. Kt Morris. 2. Dr. Rodrigues with Cardiology also following. 3. Dr. Zaki Car with Podiatry. SUBJECTIVE: The patient is supine in bed. Currently no pain. Walking "better" than he has in years. Hard of hearing in the right ear. Last bowel movement 10/28. Admits to bumping his head a couple of times on the left side, twice on his way to the bathroom on the corner of the wall on his way. OBJECTIVE: VITAL SIGNS: Temperature 99.2, afebrile, heart rate 80 earlier, now 108; blood pressure 116/75, now 80/56; respirations 16, oxygen saturation 97%. GENERAL: No acute distress. LUNGS: Clear to auscultation. Respiratory pattern even and unlabored. No supplemental oxygen. HEENT: Hard of hearing, right ear. EOMI. NECK: Supple. CARDIOVASCULAR: Regular rate and rhythm. No murmur. ABDOMEN: Bowel sounds positive. Soft, nontender, obese. No guarding. EXTREMITIES: With no pitting edema. No clubbing or cyanosis. Left foot with Nick wrap bandage covering. Dressing clean, dry, and intact. No drainage noted. NEUROLOGICAL: GCS 15. Nonfocal. LABORATORY DATA: WBCs 5.67, hemoglobin 14.1, hematocrit 39.1, platelets 257. Sodium 134, potassium 3.6, chloride 100, CO2 of 24, BUN 8, creatinine 0.72, estimated GFR greater than 60, glucose 116. Fingerstick blood glucose levels 115, 130, 128, 131, calcium 9.8, total bilirubin 0.8, AST 60, ALT 44, alkaline phosphatase 136, total protein 7.8, albumin 3.2. Final wound culture showed Staphylococcus aureus collected 10/25. Two blood cultures collected 10/25 have shown no growth after 72 hours. Wound culture collected today is pending. DIAGNOSTIC STUDIES: Echocardiogram done on 10/26 showed ejection fraction of 45 to 50%. Arterial Doppler ultrasound of the lower extremities showed focal stenosis to the popliteal artery with runoff to the left lower extremity. ASSESSMENT AND PLAN: 1. Left 5th toe wound, diabetic foot ulcer, with osteomyelitis; now status post left partial 5th ray transmetatarsal amputation on 10/30/[address] Joceline, ambulatory dysfunction. Continue wound care, pain control, wound healing medications started, cefepime, PT evaluation and treat. 2. Peripheral arterial disease, status post peripheral angiogram 10/[address] Boudreaux. 3. Controlled hypertension. Continue same. Monitor blood pressure. 4. Hyperlipidemia, pravastatin. 5. Controlled type 2 diabetes mellitus with peripheral neuropathy. Hemoglobin A1c 5.8%. Continue low-dose sliding scale insulin. Monitor fingerstick blood glucose levels. 6. Mild transaminitis, AST 60. Monitor. 7. Mild hyponatremia, sodium 134. Monitor. 8. Venous stasis. 9. Prophylaxis. Pepcid. Billing code 43751. Time spent 35 minutes. Dictated by Baudilio Small NP MD SOL EpsteinP/MODL /[id number]
[2019-10-30] MEDS: PRAVASTATIN 20 MG TAB PO SCH (21:15)
--- NOTE | 2019-10-30 21:15 | NUR ---
PATIENT IS RESTING IN BED IN STABLE CONDITION, NO SIGNS OF RESPIRATORY DISTRESS NOTED. DRESSING TO LEFT FOOT IS CLEAN, DRY, AND INTACT, PATIENT VOICES NO PAIN AT THIS TIME. BED IS IN LOWEST POSITION, BOTH SIDE RAILS ARE UP, CALL LIGHT IS WITHIN EASY REACH, WILL CONTINUE TO MONITOR.
[2019-10-31] VITALS: BP 139/76
[2019-10-31 04:00] VITALS: BP 119/76
[2019-10-31 05:46] LABS: BASOPHILS # (AUTO) 0.1 (0.0-0.1); EOSINOPHILS # (AUTO) 0.1 (0.0-0.4); EOSINOPHILS % 1.9 % (0.0-6.0); HEMATOCRIT 39.7 % (38.2-49.6); HEMOGLOBIN 14.2 g/dL (14.0-18.0); LYMPHOCYTES # (AUTO) 1.6 (1.0-3.2); LYMPHOCYTES % 23.3 % (18.0-39.1); MEAN CORPUSCULAR HEMOGLOBIN 34.6 pg (28-32); MEAN CORPUSCULAR HGB CONC 35.8 g/dL (31-35); MEAN CORPUSCULAR VOLUME 96.8 fL (81-99); MONOCYTES # (AUTO) 1.1 (0.2-0.8); MONOCYTES % 16.8 % (4.4-11.3); NEUTROPHILS # (AUTO) 3.9 (2.1-6.9); NEUTROPHILS % 56.7 % (38.7-80.0); PLATELET COUNT 256 x10e3/uL (140-360); RED CELL DISTRIBUTION WIDTH 10.6 % (11.7-14.4)
[2019-10-31 06:04] LABS: ALANINE AMINOTRANSFERASE 46 IU/L (0-55); ALBUMIN 3.2 g/dL (3.5-5.0); ALBUMIN/GLOBULIN RATIO 0.7 (0.8-2.0); ALKALINE PHOSPHATASE 130 IU/L (40-150); ANION GAP 15.7 mmol/L (8-16); BLOOD UREA NITROGEN 11 mg/dL (7-26); BUN/CREATININE RATIO 14 (6-25); CALCIUM 9.7 mg/dL (8.4-10.2); CARBON DIOXIDE 25 mmol/L (22-29); CHLORIDE 98 mmol/L (98-107); CREATININE, SERUM 0.77 mg/dL (0.72-1.25); EST GLOMERULAR FILTRATION RATE > 60 ML/MIN (60-); GLUCOSE 117 mg/dL (74-118); MAGNESIUM 1.2 MG/DL (1.3-2.1); POTASSIUM 3.7 mmol/L (3.5-5.1); SODIUM 135 mmol/L (136-145)
[2019-10-31 07:44] VITALS: BP 119/76
[2019-10-31] MEDS: INSULIN LISPRO 100 UNIT/1 ML 3ML VIAL SQ SCH ×2 (08:00→12:30)
[2019-10-31 08:33] VITALS: BP 116/68
[2019-10-31] MEDS: HYDROCHLOROTHIAZIDE 25 MG TAB PO SCH (08:40)
[2019-10-31] MEDS: FAMOTIDINE 20 MG TAB PO SCH (08:40)
[2019-10-31] MEDS: MAGNESIUM OXIDE 400 MG TAB PO SCH (08:41)
[2019-10-31] MEDS: LISINOPRIL 10 MG TAB PO SCH (08:42)
[2019-10-31] MEDS ORDERED: ASCORBIC ACID 500 MG TAB PO SCH (09:00)
[2019-10-31] MEDS ORDERED: OYST-CAL-D 500MG TABLET PO SCH (09:00)
[2019-10-31] MEDS ORDERED: ZINC SULFATE 220 MG CAP PO SCH (09:00)
[2019-10-31] MEDS ORDERED: MULTIVITAMINS/MINERALS TAB PO SCH (09:00)
--- NOTE | 2019-10-31 09:23 | Progress Note ---
DATE: 10/31/2019 SUBJECTIVE: This is a 63-year-old male with past medical history of type 2 diabetes, peripheral neuropathy, peripheral vascular disease, and hypertension. He was postoperative day #1, left partial 5th ray amputation. He was seen at bedside this morning. Relates no pain to his left foot. Denies nausea, vomiting, fever, chills, chest pain, or shortness of breath. No new pedal complaints at this time. No acute issues overnight. PHYSICAL EXAMINATION: GENERAL: Alert and oriented x3, in no apparent distress. VITAL SIGNS: Today temperature 98.7, heart rate 82, respiratory rate 20, blood pressure 139/76, and pulse ox is 100% on room air. EXTREMITIES: Problem focused lower extremity physical exam, vascular, dorsalis pedis and posterior tibial pulses are nonpalpable. Capillary refill time is delayed to the remainder of the digits with significant reduction in erythema edema and warmth to the left lower extremity. NEUROLOGIC: Sensation is diminished to light touch bilateral. MUSCULOSKELETAL: Negative pain on palpation to the left 5th digit. DERMATOLOGIC: Incision site is noted to the lateral aspect of the patient's left foot. All sutures are in place and intact. There is no evidence of wound dehiscence. No local acute signs of infection, significant reduction in erythema, edema, and warmth. LABORATORY DATA: White blood cell count 6.7, hemoglobin 14.2, hematocrit 39.7, and platelet count 256. Sodium 135, potassium 37, chloride 98, CO2 of 25, BUN 11, creatinine 0.77, and glucose 117. ASSESSMENT: 1. Left foot osteomyelitis, 5th digit, postoperative day #1 left partial 5th ray amputation. 2. Type 2 diabetes with peripheral neuropathy. 3. Peripheral vascular disease. 4. Venous stasis. 5. Hypertension. PLAN: The patient was seen and evaluated, discussed condition and treatment options with the patient in detail. At this time, a Betadine wet-to-dry dressing was performed to the patient's left foot. No local acute signs of infection were noted. The patient underwent angiogram yesterday and it was determined that no intervention was needed at this time. Wound cultures are Staph aureus, which are sensitive to many oral antibiotics. The patient is stable to be discharge from Podiatry standpoint today with crutches and partial heel touch weightbearing in a postoperative shoe. The patient is to follow up in 5 to 7 days to the outpatient [place] office for postoperative care. The Podiatry Service will follow up as an outpatient. STEPHAN Shaver/THANG /[id number]
[2019-10-31] MEDS ORDERED: ESIDRIX25 MG PO (12:13)
[2019-10-31] MEDS ORDERED: CIPRO500 MG PO (12:13)
[2019-10-31] MEDS ORDERED: Multivitamins/Minerals PO (12:13)
[2019-10-31] MEDS ORDERED: ACETAMINOPHEN325 M1 PO (12:13)
[2019-10-31] MEDS ORDERED: DOXYCYCLINE HY100 MG PO (12:13)
[2019-10-31] MEDS ORDERED: MAG-OXIDE400 MG PO (12:13)
[2019-10-31] MEDS ORDERED: Calcium Carbonate PO (12:13)
[2019-10-31] MEDS ORDERED: ZINC SULFATE220 M1 PO (12:13)
[2019-10-31] MEDS ORDERED: ASCORBIC ACID500 MG PO (12:13)
[2019-10-31] MEDS ORDERED: TYLENOL WITH C1 EACH PO (12:13)
--- NOTE | 2019-10-31 12:44 | NUR ---
Crutches were given to the patient for discharge home.
[2019-10-31 12:45] VITALS: BP 109/61
--- NOTE | 2019-10-31 12:52 | NUR ---
refresh technician visited with the pt , refresh technician initiated relationship of support and hope building , refresh technician offered prayers and blessings. pt appreciated refresh technician support chaplain Stacy
[2019-10-31] MEDS ORDERED: ONDANSETRON HCL 4 MG ORAL DISINTEGRATING TAB PO PRN (13:15)
--- NOTE | 2019-11-01 00:35 | Discharge Summary ---
CONSULTING PHYSICIANS: Include Dr. Kt Morris with Cardiology and Dr. Erick Car with Podiatry. PERTINENT HISTORY AND PHYSICAL FINDINGS AND CHIEF COMPLAINT: Left foot wound. HISTORY OF PRESENT ILLNESS: The patient is a 63-year-old man with a history of diabetes, hypertension, hyperlipidemia, who admitted from Dr. Car's office due to left foot wound. The patient stated though that the wound started as a blister about a month prior to admission. He noticed increased swelling, drainage, and pain. He was found to have peripheral arterial disease of the left lower extremity by Doppler. PAST MEDICAL HISTORY: Type 2 diabetes mellitus, peripheral neuropathy, hypertension, and hyperlipidemia. PAST SURGICAL HISTORY: Left knee surgery and bilateral eye surgery. FAMILY HISTORY: Noncontributory. SOCIAL HISTORY: Occasional moderate use of alcohol. ALLERGIES: NO KNOWN ALLERGIES. ADMITTING DIAGNOSES: 1. Left foot fifth toe wound. 2. Hypertension. 3. Type 2 diabetes mellitus. 4. Hyperlipidemia. 5. Obesity with BMI 36.4. DISCHARGE DIAGNOSES: 1. Left fifth toe wound, diabetic foot ulcer, with osteomyelitis; now status post left fifth ray amputation on 10/30/[address] Car. 2. Peripheral arterial disease, status post peripheral angiogram on 10/29/[address] Boudreaux. 3. Controlled hypertension. 4. Hyperlipidemia. 5. Controlled type 2 diabetes mellitus with peripheral neuropathy. 6. Mild transaminitis. 7. Mild hyponatremia. 8. Venous stasis. HOSPITAL COURSE: White blood cell count remained normal during his stay. His H and H stable, hemoglobin 13.9 on admission. Today on the day of discharge, hemoglobin 14.2 and hematocrit 39.7. On admission, BUN 11, creatinine 0.97, estimated GFR greater than 60, sodium a bit low at 133, AST 45, total protein 8.2, albumin 3.5. Hemoglobin A1c was 5.8%. C-reactive protein 64. B-type natriuretic peptide 16.9. Today on the day of discharge, sodium 135, potassium 3.7, chloride 98, CO2 of 25, BUN 11, creatinine 0.77, estimated GFR greater than 60, fingerstick blood glucose level 139, phosphorus 4, magnesium 1.2, AST 60, total protein 7.9, albumin 3.2. Vancomycin trough level was 10.3 on 10/27. Coronavirus PCR was not detected when collected on 10/25. Final wound culture collected on 10/25, showed Staphylococcus aureus, sensitive to the most antibiotics, resistant to clindamycin and erythromycin. Blood cultures x2 collected on 10/25, showed no growth after 72 hours. On 10/29, wound culture with final results pending. Gram stain did show few gram-positive cocci in clusters. Foot x-ray on 10/25, showed no acute fracture or dislocation. Mild degenerative changes of the midfoot and multiple interphalangeal joints. MRI of the left foot showed small toe skin ulcer with diffuse soft tissue edema and superimposed osteomyelitis involving the fifth proximal middle and distal phalanges dorsal foot soft tissue edema which can be seen with cellulitis. Echocardiogram done on 10/27/2019, showed an estimated ejection fraction 45% to 50%. Bilateral lower extremity arterial Doppler ultrasound showed possible evidence of significant arterial stenosis in the popliteal, [facility] [employer] [place], and monophasic waveforms. The patient underwent peripheral angiogram on 10/28 without obstructive peripheral arterial disease. The patient was seen and evaluated by Dr. Car today. He discussed the condition and treatment options with the patient in detail. At this time, Betadine wet-to-dry dressing is being used and was changed by Dr. Car this morning on the patient's left foot. The patient is stable to be discharged from Podiatry standpoint today with crutches and partial heel-touch weightbearing in a postoperative shoe, both of which are available at the bedside. The patient will follow up with Dr. Car in 5 to 7 days to the outpatient [place] office for postoperative care. The patient was instructed to follow up with his PCP, Dr. Eric Caceres, in 1 to 2 weeks. Activity level as tolerated. Continue [employer] diet. Today when the patient is seen in his room, he stated he had no chills and no pain. Vital signs; temperature 98.5, heart rate 73, blood pressure 116/68, respirations 14, oxygen saturation 100% on room air. No change in physical examination. Dictated by Baudilio Small NP Eric Trujillo MD HWP/THANG /[id number]
== END 2019-10-31 15:08 | disposition home or self-care (01) | DRG 617 ==
LOC: ER 18:59 → ERHOLD 19:09 → MED/SURG2 19:24
PROVIDERS: ADMIT Internal Medicine; ATTEND Internal Medicine
PROC: 0Y6N0ZF Detachment at Left Foot, Partial 5th Ray, Open Approach (ICD-10-PCS; principal; 2019-10-30 13:00)
DX: E11.69 Type 2 diabetes mellitus with other specified complication (principal); L97.526 Non-pressure chronic ulcer of other part of left foot with bone involvement without evidence of necrosis; M86.8X7 Other osteomyelitis, ankle and foot; E87.1 Hypo-osmolality and hyponatremia; E11.621 Type 2 diabetes mellitus with foot ulcer; Z79.4 Long term (current) use of insulin; Z11.59 Encounter for screening for other viral diseases; E11.42 Type 2 diabetes mellitus with diabetic polyneuropathy; E11.51 Type 2 diabetes mellitus with diabetic peripheral angiopathy without gangrene
CPT/HCPCS: 36415; 75625; 75716; 80053; 80202; 82948; 83036; 83605; 83735; 83880; 84100; 85025; 86140; 87040; 87071; 87075; 87186; 87205; 88302; 88305; 88307; 88311; 93306; 93925; 99152; 99153; 99284; C1760; C1769; J0360; J0692; J2001; J2250; J3010; J3370; J7030; J7050; Q9967; U0002